=== PATIENT | female | born 1995 | race Caucasian/White ===

== ENCOUNTER 2018-05-17 17:53 | Emergency (ER) | payer OTHER ==
[2018-05-17 19:17] VITALS: BP 122/72; PULSE 82; RESP 16; TEMP 98.2; O2SAT 98
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
== END 2018-05-17 22:07 | disposition short-term general hospital (02) ==
LOC: C.ER 17:53
DX: S02.2XXA Fracture of nasal bones, initial encounter for closed fracture (principal); S00.83XA Contusion of other part of head, initial encounter; S09.90XA Unspecified injury of head, initial encounter; Y04.0XXA Assault by unarmed brawl or fight, initial encounter